=== PATIENT | female | born 1955 | race Caucasian/White ===

== ENCOUNTER 2017-08-06 06:44 | Day surgery (SDC) | payer MEDICARE, MEDICAID ==
[~2017-08-06 06:44] MED LIST: ALLERGY NA50 MCG/ACT; AMOXICILLIN250 M1 PO; ARTIFICIAL TEAR1 OU; CETIRIZINE HCL10 MG OR; CETIRIZINE10 MG PO; DOXYCYCL HYC100 MG PO; FLUARIX QUADRIV1 IN1 IM; FLUARIX QUADRIV1 IN2 IM; FLUTICASONE50 MCG; FLUTICASONE50 MCG NAB; GLIPIZIDE5 M2 PO; LISINOPRIL20 M1 PO; LISINOPRIL20 MG PO; LORTAB 7.5 PO; LOVASTATIN20 MG PO; MEDDOSEPAK OR; MEDROL4 M1 PO; METFORMIN1000 MG PO; METFORMIN500 M1 PO; METFORMIN850 MG PO; METO25TAB OR; MEVACOR20 MG PO; MOBIC7.5 MG PO; PAIN RELIEF325 MG PO; TAB-A-VIT1 PO; TRAMADOL HCL50 MG PO; TYLENOL325 M2 PO; TYLENOL325 MG PO; VICTOZA18 MG/3 ML SC; [UNRECOGNIZED DRUG - OTHER] EX; [UNRECOGNIZED DRUG - OTHER] OU
[2017-08-06] MEDS ORDERED: LORTAB 5/3255 MG PO (08:48)
[2017-08-06 09:36] VITALS: BP 120/58
== END 2017-08-06 09:20 | disposition home or self-care (01) ==
LOC: ORM 06:44
PROVIDERS: ATTEND Obstetrics & Gynecology
PROC: 0UDB7ZX Extraction of Endometrium, Via Natural or Artificial Opening, Diagnostic (ICD-10-PCS; principal; 2017-08-06)
DX: N95.0 Postmenopausal bleeding (principal); N85.01 Benign endometrial hyperplasia; N88.2 Stricture and stenosis of cervix uteri; I10 Essential (primary) hypertension; E11.9 Type 2 diabetes mellitus without complications; H54.7 Unspecified visual loss; Z79.84 Long term (current) use of oral hypoglycemic drugs

== ENCOUNTER 2018-12-19 07:50 | Outpatient (REF) | payer MEDICARE, OTHER ==
[~2018-12-19 07:50] MED LIST changes: +HEART PILL PO; +LORTAB 5/3255 MG PO; +[UNRECOGNIZED DRUG - REMARK] PO
[2018-12-19 08:21] LABS: HEMATOCRIT 34.3 % (37.0-47.0); HEMOGLOBIN 11.1 g/dl (12.0-16.0); IMMATURE GRANULOCYTES 0.5 % (0.0-5.0); MEAN CELL VOLUME 107.9 fL CALC (80.0-100.0); MEAN CORPUSCULAR HGB 34.9 pG CALC (26.0-32.0); MEAN CORPUSCULAR HGB CONC 32.4 g/L CALC (32.0-36.0); NEUT# 5.54 thou/uL (2.00-7.15); RED BLOOD COUNT 3.18 mill/uL (4.20-5.60); RED CELL DISTRI WIDTH 12.5 % (11.5-15.5)
[2018-12-19 08:46] LABS: ALBUMIN 4.1 g/dL (3.2-5.0); BILIRUBIN, TOTAL 0.3 mg/dL (0.0-1.4); CREATININE 1.3 mg/dL (0.5-1.0); POTASSIUM 4.4 mmol/l (3.5-5.1); TOTAL PROTEIN 7.7 g/dL (6.3-8.2)
== END 2018-12-19 15:14 | disposition home or self-care (01) ==
LOC: INF 07:50
PROVIDERS: Internal Medicine Geriatric Medicine; ATTEND Nurse Practitioner Adult Health
DX: C50.212 Malignant neoplasm of upper-inner quadrant of left female breast (principal); E86.0 Dehydration; Z01.89 Encounter for other specified special examinations; Z45.2 Encounter for adjustment and management of vascular access device

== ENCOUNTER 2022-02-13 16:56 | Emergency (ER) | payer MEDICARE, MEDICAID ==
[~2022-02-13] VITALS: Ht 162.6 cm; Wt 73.0 kg
[2022-02-13 18:05] LABS: HEMOGLOBIN 11.4 g/dl (12.0-16.0); IMMATURE GRANULOCYTES 0.3 % (0.0-5.0); MEAN CELL VOLUME 100.8 fL CALC (80.0-100.0); MEAN CORPUSCULAR HGB 30.2 pG CALC (26.0-32.0); NEUT# 10.81 thou/uL (2.00-7.15); RED BLOOD COUNT 3.77 mill/uL (4.20-5.60); RED CELL DISTRI WIDTH 15.4 % (11.5-15.5)
[2022-02-13 18:16] LABS: ALKALINE PHOSPHATASE 62 u/l (38-126); BILIRUBIN, TOTAL 0.4 mg/dL (0.0-1.4); CHLORIDE 109 mmol/l (95-108); SGOT/AST 28 u/l (9-36); SODIUM 135 mmol/l (137-146)
[2022-02-13 18:20] LABS: PROTHROMBIN TIME 10.3 SECONDS (9.0-12.5)
[2022-02-13 18:29] LABS: MYOGLOBIN 139 ng/mL (0 - 62)
[2022-02-13 18:34] LABS: ALBUMIN 3.3 g/dL (3.2-5.0); ANION GAP 14 (6-22 (CALC)); BUN 94 mg/dL (8-23); BUN/CREATININE RATIO 29 (12-20 (CALC)); CARBON DIOXIDE 17 mmol/l (22-30); CREATININE 3.2 mg/dL (0.5-1.0); GFR 14 ML/MIN (>=60 (CALC)); GFR FOR AFR.AMER. 17 ML/MIN (>=60 (CALC)); POTASSIUM 5.2 mmol/l (3.5-5.1)
[2022-02-13 19:34] LABS: URINE BILIRUBIN - DIPSTICK NEGATIVE (NEGATIVE); URINE BLOOD DIPSTICK NEGATIVE (NEGATIVE); URINE COLOR YELLOW; URINE GLUCOSE - DIPSTICK >=1000 mg/dL (NEGATIVE); URINE KETONE NEGATIVE (NEGATIVE); URINE LEUK ESTERASE TRACE (NEGATIVE); URINE PH 5.5 (4.5-8.0); URINE PROTEIN - DIPSTICK NEGATIVE (NEG-TRACE); URINE UROBILINOGEN - DIPSTICK 0.2 E.U./dL (0.2)
[2022-02-13 19:35] LABS: URINE NITRITE - DIPSTICK NEGATIVE (Negative)
[2022-02-13] MEDS ORDERED: LISINOPRIL10 MG PO (20:19)
[2022-02-13] MEDS ORDERED: CALCIUM 600 + M1 TAB (20:22)
[2022-02-13] MEDS ORDERED: SOLIFENACIN SUCC5 MG (20:23)
[2022-02-13] MEDS ORDERED: ACTOS30 MG PO (20:23)
[2022-02-13] MEDS ORDERED: JARDIANCE10 MG (20:24)
[2022-02-13] MEDS ORDERED: TRULICITY1.5 MG/0.5 (20:25)
[2022-02-13] MEDS ORDERED: METOPROL TAR25 M1 PO (20:25)
[2022-02-13] MEDS ORDERED: ANTI-DIARRHE2 M1 PO (20:26)
[2022-02-13] MEDS ORDERED: OMEPRAZOLE DR40 MG (20:26)
[2022-02-13] MEDS ORDERED: COMPAZINE10 MG PO (20:26)
[2022-02-13] MEDS ORDERED: LIDOCAINE PATCH 55 % (20:27)
[2022-02-13] MEDS ORDERED: ZOFRAN4 MG/TAB PO (20:28)
[2022-02-13] MEDS ORDERED: TYLENOL # 31 TA1 PO (20:28)
[2022-02-13] MEDS ORDERED: SYSTANE ULTRA OP (20:29)
[2022-02-13 21:04] VITALS: BP 101/55
== END 2022-02-13 21:04 | disposition short-term general hospital (02) ==
LOC: ED 16:56
PROVIDERS: Nurse Practitioner
DX: J95.811 Postprocedural pneumothorax (principal); J18.9 Pneumonia, unspecified organism; I95.9 Hypotension, unspecified; C96.9 Malignant neoplasm of lymphoid, hematopoietic and related tissue, unspecified; R19.00 Intra-abdominal and pelvic swelling, mass and lump, unspecified site; N17.9 Acute kidney failure, unspecified; I12.9 Hypertensive chronic kidney disease with stage 1 through stage 4 chronic kidney disease, or unspecified chronic kidney disease; E11.22 Type 2 diabetes mellitus with diabetic chronic kidney disease; N18.9 Chronic kidney disease, unspecified; I25.10 Atherosclerotic heart disease of native coronary artery without angina pectoris; G40.909 Epilepsy, unspecified, not intractable, without status epilepticus; E78.5 Hyperlipidemia, unspecified; Z85.3 Personal history of malignant neoplasm of breast; H54.7 Unspecified visual loss; Y83.8 Other surgical procedures as the cause of abnormal reaction of the patient, or of later complication, without mention of misadventure at the time of the procedure; Z90.13 Acquired absence of bilateral breasts and nipples; Z95.828 Presence of other vascular implants and grafts; Z79.84 Long term (current) use of oral hypoglycemic drugs